=== PATIENT | male | born 1950 | race Caucasian/White ===

== ENCOUNTER 2018-11-07 19:35 | Emergency (ER) | payer OTHER ==
[2018-11-07] MEDS ORDERED: Lidocaine 2% W/EPI 1:100,000* 20 ML MDV ONE (19:45)
[2018-11-07] MEDS ORDERED: HYDROcodone/ACETAMIN 5-325 MG* 1 TAB ONE (20:15)
[2018-11-07] MEDS ORDERED: Cephalexin CAP* 500 MG PO ONE (20:22)
[2018-11-07] MEDS ORDERED: HYDROcodone/ACETAMIN 5-325 MG* 1 TAB PO ONE (20:22)
[2018-11-07] MEDS ORDERED: Lidocaine 2% W/EPI 1:100,000* 20 ML MDV INJ ONE (20:22)
[2018-11-07] MEDS ORDERED: Tetan/Diph/Pertus SYR(Tdap)* 0.5 ML SYR(BOOSTRIX) use SYR IM ONE ×2 (20:22→20:25)
--- NOTE | 2018-11-07 20:31 | UC ---
Minor Trauma HPI - HPI Summary HPI Summary: 68-year-old male presents with laceration to his dorsal left hand within the webspace between his thumb and index finger. Patient states approximately 45 minutes prior to arrival he was attempting to open a wine bottle with a pair of pliers and he snapped the neck of the bottle causing a laceration to his hand. Patient had a pressure dressing and was applying direct pressure upon arrival but still had quite a bit of oozing blood from the dressing site. Dressing was removed and arterial bleeding was noted. Direct pressure was applied to the wound until appropriate equipment could be made available for repair. Patient has full range of motion to all fingers with strength and sensation intact. Tetanus status unknown. - History of Current Complaint Chief Complaint: UCLaceration Stated Complaint: HAND LACERATION Hx Obtained From: Patient Pain Intensity: 7 - Allergies/Home Medications Allergies/Adverse Reactions: Allergies Allergy/AdvReac Type Severity Reaction Status Date / Time No Known Allergies Allergy Verified 11/07/18 19:57 Home Medications: Home Medications NK [No Home Medications Reported] 11/07/18 [History Confirmed 11/07/18] PMH/Surg Hx/FS Hx/Imm Hx Previously Healthy: Yes - Denies significant PMH - Surgical History Surgical History: Yes Surgery Procedure, Year, and Place: RT SHOULDER ROTATOR CUFF REPAIR AND DECOMPRESSION 08-17 AT [facility] [place], LEFT FIFTH METACARPAL 06/18 AT [facility] [place], CATARACTS. Lt SHOULDER - ARTHROSCOPIC- DEBRIDEMENT - Family History Known Family History: Positive: Non-Contributory - Social History Occupation: Employed Full-time Lives: Alone Alcohol Use: Occasionally Alcohol Amount: 2 drinks tonight Substance Use Type: None Smoking Status (MU): Never Smoked Tobacco Review of Systems All Other Systems Reviewed And Are Negative: Yes Constitutional: Negative: Fever, Chills Skin: Positive: Other - See HPI Respiratory: Positive: Negative Cardiovascular: Positive: Negative Gastrointestinal: Positive: Negative Motor: Negative: Weakness Neurovascular: Negative: Decreased Sensation Musculoskeletal: Negative: Decreased ROM Neurological: Positive: Negative Is Patient Immunocompromised?: No Physical Exam - Summary Physical Exam Summary: GENERAL APPEARANCE: Well developed, well nourished, alert and cooperative, and appears to be in no acute distress. CARDIAC: Normal S1 and S2. No S3, S4 or murmurs. Rhythm is regular. There is no peripheral edema, cyanosis or pallor. Extremities are warm and well perfused. Capillary refill is less than 2 seconds. Peripheral pulses intact. LUNGS: Clear to auscultation without rales, rhonchi, wheezing or diminished breath sounds. ABDOMEN: Positive bowel sounds. Soft, nondistended, nontender. No guarding or rebound. No masses or hepatosplenomegally. MUSKULOSKELETAL: ROM intact to all extremities. No joint erythema or tenderness. Normal muscular development. Normal gait. EXTREMITIES: V-shaped flap laceration laceration approximately 5-6 cm in total length that extends into the muscle tissue to the dorsal aspect of his left hand within the webspace between the thumb and index finger. Arterial bleeding was noted. Full ROM to all fingers with strength and sensation intact. NEUROLOGICAL: Strength and sensation symmetric and intact throughout. SKIN: Skin normal color, texture and turgor with no lesions or eruptions. Triage Information Reviewed: Yes Vital Signs: Initial Vital Signs Temp 98 F 11/07/18 19:51 Pulse 70 11/07/18 19:51 Resp 18 11/07/18 19:51 BP 164/84 11/07/18 19:51 Pulse Ox 100 11/07/18 19:51 Vital Signs Reviewed: Yes Procedures - Procedure Summary Procedure Summary: Procedure note: Laceration repair dorsal left hand Informed consent was obtained before procedure started and the appropriate timeout was taken. Due to the emergent nature of the repair, adequate cleaning and irrigation not able to be performed. A blood pressure cuff was applied to the arm and inflated to 200 mmHg in order to obtain adequate hemostasis for repair. Local anesthesia was achieved using 8 ml of lidocaine 2% with epinephrine. The wound margins were brought into good alignment while direct pressure was maintained. A total of 9 interrupted sutures were placed using 4-0 Ethilon. A pressure dressing was applied to wound. The BP cuff was deflated. Total tourniquet time was approximately 25 minutes. Estimated blood loss was approximately 30 mL. Re-Evaluation - Re-Evaluation First Eval Re-Evaluation Time: 20:40 Comment: Patient returned from x-ray and results were reviewed with patient. The fingers of his left hand were noted to be cool, dusky, with cap refill of 4 sec. The pressure dressing was removed in order to reassess and a hematoma immediately began to form underneath the wound. Direct pressure was immediately applied and the pressure dressing was reapplied. CMS remained intact after application. Minor Trauma Course/Dx - Course Course Of Treatment: 68-year-old male presents with laceration to his dorsal left hand within the webspace between his thumb and index finger. Patient states approximately 45 minutes prior to arrival he was attempting to open a wine bottle with a pair of pliers and he snapped the neck of the bottle causing a laceration to his hand. Patient had a pressure dressing and was applying direct pressure upon arrival but still had quite a bit of oozing blood from the dressing site. Dressing was removed and arterial bleeding was noted. Direct pressure was applied to the wound until appropriate equipment could be made available for repair. Patient has full range of motion to all fingers with strength and sensation intact. Tetanus status unknown. Afebrile. Vital signs stable. The area of the wound was anesthetized and a total of 9 interrupted sutures were placed using 4-0 Ethilon and a pressure dressing was applied to the hand. Patient was sent to x-ray and was noted to have a radiopaque foreign body present within the hand. Reassessment of showed cool dusky fingers with capillary refill of approximately 4 seconds therefore the pressure dressing was removed moved to allow for reapplication. Within a few seconds of removing the pressure dressing a large hematoma was noted to be forming beneath the wound therefore direct pressure was applied until second pressure dressing to be applied. I contacted vascular surgery at [facility], Dr. King, to discuss the case and she agrees that he should be urgently evaluated in the emergency room for possible radial artery laceration. She states that she does not operate on hand but hand surgery would be available for consultation. Patient received Ayer 5 mg/325 mg 1 tab for pain management, TDAP 0.5 mL IM, and cephalexin 500 mg by mouth. He was transferred via [facility] to [facility], Dr. Hernadez accepting. Patient was stable at time of transfer. - Differential Dx/Diagnosis Differential Diagnosis/HQI/PQRI: Laceration(s), Other - FB hand, tendon laceration, artery laceration, vein laceration Provider Diagnosis: Laceration of left hand with foreign body Discharge - Sign-Out/Discharge Documenting (check all that apply): Patient Departure All imaging exams completed and their final reports reviewed: No - Discharge Plan Condition: Stable Disposition: TRANS HIGHER [facility]ARE FAC Referrals: Sarah Crook MD [Primary Care Provider] - Additional Instructions: It has been recommended that you be transferred to [facility] to be evaluated for possible radial artery laceration via EMS. - Billing Disposition and Condition Condition: STABLE Disposition: Trans Higher Lvl of Care Fac
[2018-11-07 21:33] VITALS: BP 171/96
--- NOTE | 2018-11-08 13:50 | UC ---
- Progress Note Progress Note: RADIOLOGY REPORT REVIEWED. CONFIRMS PROBABLE FOREIGN BODY ANTERIOR TO THE PROXIMAL SECOND METACARPAL. PT WAS TRANSFERRED TO [facility] FOR MANAGEMENT OF POSSIBLE VASCULAR INJURY. NO FURTHER INTERVENTION FROM US INDICATED. Re-Evaluation - Re-Evaluation First Eval Re-Evaluation Time: 20:40 Comment: Patient returned from x-ray and results were reviewed with patient. The fingers of his left hand were noted to be cool, dusky, with cap refill of 4 sec. The pressure dressing was removed in order to reassess and a hematoma immediately began to form underneath the wound. Direct pressure was immediately applied and the pressure dressing was reapplied. CMS remained intact after application. Course/Dx - Diagnoses Provider Diagnoses: Laceration of left hand with foreign body Discharge - Sign-Out/Discharge Documenting (check all that apply): Post-Discharge Follow Up All imaging exams completed and their final reports reviewed: Yes - Discharge Plan Condition: Stable Disposition: TRANS HIGHER [facility] OF CARE FAC Referrals: Sarah Crook MD [Primary Care Provider] - Additional Instructions: It has been recommended that you be transferred to [facility] ED to be evaluated for possible radial artery laceration via EMS. - Billing Disposition and Condition Condition: STABLE Disposition: Trans Higher Lvl of Care Fac
== END 2018-11-07 22:15 | disposition short-term general hospital (02) ==
LOC: UCEAST 19:35
DX: S61.422A Laceration with foreign body of left hand, initial encounter (principal); W26.8XXA Contact with other sharp object(s), not elsewhere classified, initial encounter; Y92.9 Unspecified place or not applicable; Z23 Encounter for immunization
CPT/HCPCS: 12002; 12004; 90471; 90715; 99214; A9270-GY; G0463